=== PATIENT | female | born 1930 | race Caucasian/White ===

== ENCOUNTER 2017-06-24 11:21 | Emergency (ER) | payer OTHER | END 2017-06-24 13:42 | disposition home or self-care (01) | LOC: NEPD 11:21 | DX: S00.03XA Contusion of scalp, initial encounter (principal); E78.5 Hyperlipidemia, unspecified; I10 Essential (primary) hypertension; W01.0XXA Fall on same level from slipping, tripping and stumbling without subsequent striking against object, initial encounter; Y92.480 Sidewalk as the place of occurrence of the external cause; Z72.0 Tobacco use | CPT/HCPCS: 70450; 99283 ==

== ENCOUNTER 2017-07-07 11:59 | Emergency (ER) | payer OTHER ==
[~2017-07-07] VITALS: Ht 160 cm; Wt 81.0 kg
[~2017-07-07 11:59] MED LIST: ALEN1TAB48 PO; ASPI81CH7 CHEW; ENAL10TA PO; HYDR25TA5 PO; LEVO88TA2 PO; LOVA40TA PO
[2017-07-07 12:05] VITALS: BP 131/81; PULSE 102; RESP 21; O2SAT 96
[2017-07-07] MEDS ORDERED: ENAL10TA7 PO (12:22)
[2017-07-07] MEDS ORDERED: BENZ100 PO (12:22)
[2017-07-07] MEDS ORDERED: ENAL10TA PO (12:22)
[2017-07-07] MEDS ORDERED: VITA10002 PO (12:22)
[2017-07-07] MEDS ORDERED: CALCTAB98 PO (12:22)
[2017-07-07] MEDS ORDERED: VITALIQ PO (12:22)
[2017-07-07 12:25] VITALS: BP 131/81; PULSE 93; RESP 14; TEMP 98.5; O2SAT 96
--- NOTE | 2017-07-07 12:43 | PD ---
HPI Chief Complaint: Respiratory Symptoms Time Seen by Provider: 12:21 Travel History International Travel<30 days: No Contact w/Intl Traveler<30days: No Traveled to known affect area: No History of Present Illness HPI The patient was seen and examined in the presence of the nurse. This patient has been coughing for a few days. She has been bringing up some clear phlegm. Today she had some blood specks in her mucus and she called her physician who told her to come here. At this point she is not having shortness of breath. No fever or chest pain. She quit smoking 30 years ago. She has no history of lung disease. Symptom severity is moderate. Duration 3 days. No alleviating factors. No exacerbating factors PFSH Past Medical History Arthritis: Yes Heart Rhythm Problems: No Cardiac Catheterization: No Cardiovascular Problems: Yes High Cholesterol: Yes Congestive Heart Failure: No Diabetes: No Heparin Induced Thrombocytopen: No Hypertension: Yes Myocardial Infarction: No Thyroid Disease: Yes Tetanus Vaccination: > 5 Years Influenza Vaccination: Yes Menopausal: Yes Past Surgical History Coronary Artery Bypass Graft: No Eye Surgery: Yes Social History Alcohol Use: Yes (OCCASIONALLY ALCOHOL) Tobacco Use: No Substance Use: No Allergies-Medications (Allergen,Severity, Reaction): Coded Allergies: No Known Allergies (Verified Adverse Reaction, Unknown, 06/24/17) Reported Meds & Prescriptions Reported Meds & Active Scripts Active Reported [Vitamin D3] 1 Tab PO DAILY [Calcium] 1 Tab PO DAILY Vitamin B-12 (Cyanocobalamin) 1,000 Mcg Tab 1,000 Mcg PO DAILY Tessalon Perles (Benzonatate) 100 Mg Cap 100 Mg PO TID PRN Enalapril (Enalapril Maleate) 10 Mg Tab 10 Mg PO DAILY Enalapril-Hydrochorothiazide (Enalapril-Hydrochlorothiazide) 10-25 Mg Tab 1 Tab PO DAILY Aspirin Children's (Aspirin) 81 Mg Chew 81 Mg CHEW DAILY Lovastatin 40 Mg Tab 40 Mg PO DAILY Levothyroxine (Levothyroxine Sodium) 88 Mcg Tab 88 Mcg PO DAILY Alendronate (Alendronate Sodium) 70 Mg Tab 70 Mg PO Q7D Review of Systems General / Constitutional: No: Fever Eyes: No: Visual changes HENT: No: Headaches Cardiovascular: No: Chest Pain or Discomfort Respiratory: Positive: Cough, Hemoptysis, No: Shortness of Breath Gastrointestinal: No: Abdominal Pain Genitourinary: No: Dysuria Musculoskeletal: No: Pain Skin: No Rash Neurologic: No: Weakness Psychiatric: No: Depression Endocrine: No: Polydipsia Hematologic/Lymphatic: No: Easy Bruising Physical Exam Narrative GENERAL: Well-nourished, well-developed patient in no apparent distress. SKIN: Focused skin assessment reveals no rash and nodules. Skin is Warm and dry. HEAD: Atraumatic. Normocephalic. EYES: Pupils equal and round. No scleral icterus. No injection or drainage. ENT: No nasal bleeding or discharge. Mucous membranes pink and moist. NECK: Trachea midline. No JVD. CARDIOVASCULAR: Regular rate and rhythm. No murmur appreciated. RESPIRATORY: No accessory muscle use. Clear to auscultation. Breath sounds equal bilaterally. GASTROINTESTINAL: Abdomen soft, non-tender, nondistended. Hepatic and splenic margins not palpable. MUSCULOSKELETAL: No obvious deformities. No clubbing. No cyanosis. No edema. NEUROLOGICAL: Awake and alert. No obvious cranial nerve deficits. Motor grossly within normal limits. Normal speech. PSYCHIATRIC: Appropriate mood and affect; insight and judgment normal. Data Data Last Documented VS Vital Signs Date Time Temp Pulse Resp B/P (MAP) Pulse Ox O2 Delivery O2 Flow Rate FiO2 07/07/17 12:25 98.5 93 14 131/81 (98) 96 Room Air Orders Orders Chest, Single Ap (07/07/17 ) Complete Blood Count With Diff (07/07/17 12:35) Basic Metabolic Panel (Bmp) (07/07/17 12:35) Electrocardiogram (07/07/17 12:09) Labs Laboratory Tests Test 07/07/17 12:50 White Blood Count 6.5 TH/MM3 Red Blood Count 4.51 MIL/MM3 Hemoglobin 13.3 GM/DL Hematocrit 39.2 % Mean Corpuscular Volume 86.9 FL Mean Corpuscular Hemoglobin 29.4 PG Mean Corpuscular Hemoglobin Concent 33.8 % Red Cell Distribution Width 14.2 % Platelet Count 215 TH/MM3 Mean Platelet Volume 7.3 FL Neutrophils (%) (Auto) 66.1 % Lymphocytes (%) (Auto) 24.0 % Monocytes (%) (Auto) 7.3 % Eosinophils (%) (Auto) 2.0 % Basophils (%) (Auto) 0.6 % Neutrophils # (Auto) 4.3 TH/MM3 Lymphocytes # (Auto) 1.6 TH/MM3 Monocytes # (Auto) 0.5 TH/MM3 Eosinophils # (Auto) 0.1 TH/MM3 Basophils # (Auto) 0.0 TH/MM3 CBC Comment DIFF FINAL Differential Comment Blood Urea Nitrogen 10 MG/DL Creatinine 1.13 MG/DL Random Glucose 95 MG/DL Calcium Level 9.1 MG/DL Sodium Level 136 MEQ/L Potassium Level 4.0 MEQ/L Chloride Level 102 MEQ/L Carbon Dioxide Level 24.1 MEQ/L Anion Gap 10 MEQ/L Estimat Glomerular Filtration Rate 46 ML/MIN MDM Medical Decision Making Medical Screen Exam Complete: Yes Emergency Medical Condition: Yes Medical Record Reviewed: Yes Differential Diagnosis Bronchitis, pneumonia, lung cancer Narrative Course I have reviewed the patient's electronic medical record. IV placed and labs sent CBC is normal Metabolic profile is normal I reviewed her chest x-ray shows a subcentimeter density near the scapula of unclear significance. I discussed at length with the patient and recommend his primary physician be made aware and discuss outpatient CT scanning Presentation seems most consistent with a bronchitis with a bit of blood flecks in the mucus. She should continue with outpatient follow-up. She knows that cancer and some other more important diagnosis is are in the differential. Diagnosis Primary Impression: Hemoptysis Additional Impressions: Bronchitis Abnormal chest x-ray Additional Instructions: The patient was advised to follow up with their physician and return if they worsen. Discuss your chest x-ray finding with your physician Med/Other Pt SpecificInfo: Other Disposition: 01 DISCHARGE HOME Condition: Stable Chin Tanner MD July 07, 2017 12:43
[2017-07-07 13:05] LABS: AUTOMATED NEUTROPHIL # 4.3 TH/MM3 (1.8-7.7); BASOPHIL % 0.6 % (0.0-2.0); EOSINOPHIL # 0.1 TH/MM3 (0-0.4); HEMATOCRIT 39.2 % (35.0-46.0); HEMOGLOBIN 13.3 GM/DL (11.6-15.3); LYMPHOCYTE # 1.6 TH/MM3 (1.0-4.8); MEAN CELL VOLUME 86.9 FL (80.0-100.0); MEAN CORPUSCULAR HEMOGLOBIN 29.4 PG (27.0-34.0); MEAN CORPUSCULAR HGB CONC 33.8 % (32.0-36.0); MEAN PLATELET VOLUME 7.3 FL (7.0-11.0); MONO % 7.3 % (0.0-8.0); MONOCYTE # 0.5 TH/MM3 (0-0.9); NEUT % 66.1 % (16.0-70.0); PLATELET COUNT 215 TH/MM3 (150-450); RED BLOOD COUNT 4.51 MIL/MM3 (4.00-5.30); RED CELL DISTRIBUTION WIDTH 14.2 % (11.6-17.2); WHITE BLOOD COUNT 6.5 TH/MM3 (4.0-11.0)
--- NOTE | 2017-07-07 13:17 | RADRPT ---
EXAM DATE/TIME: 07/07/2017 12:51 [facility] COMPARISON: No previous studies available for comparison. INDICATIONS : Cough. MEDICAL HISTORY : Hypercholesterolemia. Hypertension SURGICAL HISTORY : None. ENCOUNTER: Initial ACUITY: 3 days PAIN SCORE: 0/10 LOCATION: Bilateral chest FINDINGS: A single view of the chest demonstrates a subcentimeter nodular density projecting over the right sca pula. Minimal atelectatic changes of the right hemidiaphragm. Lungs are otherwise clear. Heart size i s normal. Dextroscoliosis of the dorsal spine. Osseous structures are otherwise intact. CONCLUSION: 1. Small, subcentimeter density projecting over the scapula is nonspecific. No priors for comparison. At minimum, 3 month followup to ensure stability/resolution. Alternatively, noncontrasted CT scan of the chest to be performed for further characterization. 2. Lungs are otherwise clear with minimal atelectatic changes above the right hemidiaphragm Rakesh Nielsen MD on July 07, 2017 at 13:13 Board Certified Radiologist. This report was verified electronically.
[2017-07-07 13:26] LABS: BICARBONATE 24.1 MEQ/L (21.0-32.0); CALCIUM 9.1 MG/DL (8.5-10.1); CREATININE 1.13 MG/DL (0.50-1.00)
[2017-07-07 15:40] VITALS: BP 134/63
--- NOTE | 2017-07-08 16:38 | EKG ---
Date Performed: 07/07/2017 Time Performed: 12:09:23 PTAGE: 87 years EKG: SINUS TACHYCARDIA MINIMAL VOLTAGE CRITERIA FOR LVH, CONSIDER NORMAL VARIANT MINIMAL ST DEPR ESSION ABNORMAL RHYTHM ECG INTERPRETATION BASED ON A DEFAULT AGE OF 40 YEARS when compared to rpior e kg, patient now has a mild sinus tachycardia. previous history noterd inferior Q waves are no longer present. PREVIOUS TRACING : 05/16/2009 04.05 DOCTOR: Jonnathan Tello Interpretating Date/Time 07/08/2017 16:37:15
== END 2017-07-07 15:42 | disposition home or self-care (01) ==
LOC: NEPC 11:59
DX: R04.2 Hemoptysis (principal); J40 Bronchitis, not specified as acute or chronic; R91.8 Other nonspecific abnormal finding of lung field; E07.9 Disorder of thyroid, unspecified; E78.00 Pure hypercholesterolemia, unspecified; I10 Essential (primary) hypertension; Z87.891 Personal history of nicotine dependence
CPT/HCPCS: 71045; 80048; 85025; 93005; 99285